=== PATIENT | male | born 1945 | race Caucasian/White ===

== ENCOUNTER 2018-07-03 15:14 | Emergency (ER) | payer MEDICARE, MEDICAID ==
--- NOTE | 2018-07-03 15:33 | Emergency Department Record ---
History of Present Illness - General Chief Complaint: Difficulty Breathing Stated Complaint: saloni Time Seen by Provider: 07/03/18 15:32 Source: Patient Mode of Arrival: Ambulatory Limitations: No limitations - History of Present Illness Initial Comments: The patient is here due to a mild cough and SOB for 4 days. The SOB did start about 2 years ago but has gotten worse recently. He has had some lower chest discomfort when he lies down and with deep breaths. He also has had worsening ALMAZAN for the last 4 days. The patient denies any leg pain, swelling, or any recent travel. The patient is a long time smoker and states he does have COPD but is on no medicines for it. The patient denies any chest pain, chest aching, sweating or nausea. MD Complaint: Shortness of breath Onset/Timin -: Year(s) Consistency: Intermittent, Getting worse Improves With: Rest Worsens With: Coughing, Exertion, Movement Known History Of: COPD Context: Occurred during exertion Associated Symptoms: Pain with inspiration - Related Data Home Oxygen Therapy: No Home Medications Medication Instructions Recorded Confirmed Last Taken Brimonidine/Dorzolamide/Pf 10 ml OP BID 07/03/18 07/03/18 07/03/18 [Brimonidine 0.15%-Dorzolam 2%] Latanoprost 0.005% Opth Yuliya 1 drop OP BID 07/03/18 07/03/18 07/03/18 [Xalatan] Previous Rx's Medication Instructions Recorded Albuterol Sulfate [Proair Hfa] 2 puff IH QID PRN #1 inhaler 07/03/18 Prednisone [Prednisone 20Mg] 40 mg PO DAILY #8 tab 07/03/18 Allergies Allergy/AdvReac Type Severity Reaction Status Date / Time No Known Drug Allergies Allergy Verified 07/03/18 15:21 Travel Screening - Travel/Exposure Within Last 30 Days Have you traveled within the last 30 days?: No - Travel/Exposure Within Last Year Have you traveled outside the [place] in the last year?: No - Additonal Travel Details Have you been exposed to anyone with a communicable illness?: No - Travel Symptoms Symptom Screening: None Review of Systems Constitutional: Denies: Chills, Fever Eyes: Denies: Eye discharge ENT: Denies: Congestion Respiratory: Reports: Cough, Dyspnea. Denies: Hemoptysis Cardiovascular: Reports: Chest pain. Denies: Arrhythmia Endocrine: Denies: Fatigue Gastrointestinal: Denies: Diarrhea, Vomiting Genitourinary: Denies: Dysuria Musculoskeletal: Denies: Arthralgia Skin: Denies: Bruising Past Medical History - SOCIAL HISTORY Smoking Status: Current every day smoker Alcohol Use: Occasional Drug Use: None - RESPIRATORY Hx Respiratory Disorders: Yes Hx COPD: Yes - CARDIOVASCULAR Hx Cardio Disorders: No - NEURO Hx Neuro Disorders: No - GI Hx GI Disorders: No - Hx Genitourinary Disorders: No - ENDOCRINE Hx Endocrine Disorders: No - MUSCULOSKELETAL Hx Musculoskeletal Disorders: No - PSYCH Hx Psych Problems: No - HEMATOLOGY/ONCOLOGY Hx Hematology/Oncology Disorders: No Family Medical History Any Significant Family History?: No Physical Exam - General General Appearance: Alert, Oriented x3, Cooperative, No acute distress - Head Head exam: Atraumatic, Normocephalic, Normal inspection - Eye Eye exam: Normal appearance, PERRL, EOMI - ENT Throat exam: Normal inspection. negative: Tonsillar erythema, Tonsillar exudate - Neck Neck exam: Normal inspection, Full ROM. negative: Tenderness - Respiratory Respiratory exam: Decreased breath sounds. negative: Normal lung sounds bilaterally, Accessory muscle use, Chest wall tenderness, Rales, Respiratory distress, Rhonchi, Stridor - Cardiovascular Cardiovascular Exam: Regular rate, Normal rhythm, Normal heart sounds - GI/Abdominal GI/Abdominal exam: Soft, Normal bowel sounds. negative: Tenderness - Extremities Extremities exam: Normal inspection, Full ROM, Normal capillary refill. negative: Tenderness - Back Back exam: Reports: Normal inspection - Neurological Neurological exam: Alert, Normal gait. negative: Abnormal gait, Motor sensory deficit Course Vital Signs 07/03/18 15:25 Temperature 97.6 F Pulse Rate 82 Respiratory 18 Rate Blood Pressure 138/71 Pulse Ox 97 - Reevaluation(s) Reevaluation #1: The patient is doing better at this time. He states his vague chest discomfort is improved after the Duoneb tx and is basically gone and the patient is resting comfortably. 07/03/18 16:26 Reevaluation #2: The patient is doing much better at this time. He is resting comfortably with no pain, discomfort, or pleuritic CP. His cardiac workup was neg and his age adjusted D-dimer was neg. I do believe the patient's issues are related to untreated COPD so we will get the patient on some appropriate medicines and have him F/U with a PCP. 07/03/18 16:47 Reevaluation #3: The patient is doing a lot better at this time. The steroids and inhallers completely resolved the patient's dyspnea and vague chest discomfort with deep breaths. He feels ready for home and has clear lungs and normal vital signs. 07/03/18 17:40 Medical Decision Making - Data Complexity MDM Data: Labs Ordered and/or Reviewed, X-Ray Ordered and/or Reviewed, EKG Ordered and/or Reviewed - Lab Data Result diagrams: 07/03/18 15:45 07/03/18 15:45 - EKG Data -: EKG Interpreted by Me EKG: No Acute Changes, Normal EKG - Radiology Data Radiology results: Report reviewed (CXR: Stable COPD.) Disposition Disposition: Discharge Clinical Impression: COPD exacerbation Disposition: Home, Self-Care Condition: (2) Stable Instructions: Dyspnea (ED) Additional Instructions: Please try to quit smoking and use the Inhaller and Prednisone as directed. Please see a family doctor later this week or next week for recheck. Return to the ER for any worsening symptoms. Please also see Dr. Coelho for Cardiology for further evaluation. Please return to the ER for any worsening symptoms, any chest pain, worse shortness of breath or fever. Prescriptions: Albuterol Sulfate [Proair Hfa] 2 puff IH QID PRN #1 inhaler PRN Reason: Cough And Difficulty Breathing Prednisone [Prednisone 20Mg] 40 mg PO DAILY #8 tab Forms: Patient Portal Access Time of Disposition: 17:38 Quality - Quality Measures Quality Measures: N/A - Blood Pressure Screening View Details: Yes Does Patient Have Any of the Following: No Blood Pressure Classification: Pre-Hypertensive BP Reading Systolic Measurement: 138 Diastolic Measurement: 71 Screening for High Blood Pressure: < Pre-Hypertensive BP, F/U Documented > [ G8950] Pre-Hypertensive Follow-up Interventions: Referral to alternative/primary care provider.
[2018-07-03] MEDS ORDERED: IPRATROPIUM/ALBUTEROL (0.5MG/3MG) NEB INH ONE (15:38)
[2018-07-03 15:58] LABS: EOS % 2.9 % (0-6); GRAN % 55.2 % (47-80); HEMATOCRIT 40.4 % (42.0-52.0); MEAN CELL VOLUME 89.2 fl (81-97); MEAN CORPUSCULAR HEMOGLOBIN 30.9 pg (27-33); MEAN CORPUSCULAR HGB CONC 34.7 g/dl (32-36); MEAN PLATELET VOLUME 8.9 fl (7.4-10.4); MONO % 14.9 % (0-9); PLATELET COUNT 281 K/uL (130-400); RED BLOOD COUNT 4.53 M/uL (4.40-5.70); RED CELL DISTRIBUTION WIDTH 12.9 % (11.5-14.5); WHITE BLOOD COUNT W/O DIFF 5.8 K/uL (4.2-12.2)
[2018-07-03 16:12] LABS: BLOOD UREA NITROGEN 10 mg/dL (8-23); CREATININE 0.9 mg/dL (0.7-1.2); EST GLOMERULAR FILTRATION RATE > 60 mL/min
[2018-07-03 16:13] LABS: TOTAL PROTEIN 7.6 g/dL (6.6-8.7)
[2018-07-03 16:15] LABS: GLUCOSE,RANDOM 103 mg/dL (74-109)
[2018-07-03 16:17] LABS: ALB/GLOB RATIO 1.2 (1.1-1.8); ALBUMIN 4.2 g/dL (4.0-5.0); ALT/SGPT 10 U/L (<41); AST/SGOT 15 U/L (10.0-50.0)
[2018-07-03 16:18] LABS: ALKALINE PHOSPHATASE 86 U/L (55-149)
[2018-07-03] MEDS ORDERED: METHYLPREDNISOLONE PF 125MG/VIAL IVP ONE (16:21)
[2018-07-03 16:22] LABS: CKMB 1.2 ng/mL (<6.73)
[2018-07-03] MEDS ORDERED: ALBUTEROL SULFATE (0.083%) 2.5 MG/3 ML NEB INH ONE (16:38)
--- NOTE | 2018-07-03 17:46 | Emergency Department Record ---
History of Present Illness - General Chief Complaint: Difficulty Breathing Stated Complaint: saloni Time Seen by Provider: 07/03/18 15:32 Source: Patient Mode of Arrival: Ambulatory Limitations: No limitations - History of Present Illness Onset/Timin -: Year(s) Consistency: Intermittent, Getting worse Improves With: Rest Worsens With: Coughing, Exertion, Movement Known History Of: COPD Context: Occurred during exertion Associated Symptoms: Pain with inspiration - Related Data Home Oxygen Therapy: No Home Medications Medication Instructions Recorded Confirmed Last Taken Brimonidine/Dorzolamide/Pf 10 ml OP BID 07/03/18 07/03/18 07/03/18 [Brimonidine 0.15%-Dorzolam 2%] Latanoprost 0.005% Opth Yuliya 1 drop OP BID 07/03/18 07/03/18 07/03/18 [Xalatan] Previous Rx's Medication Instructions Recorded Albuterol Sulfate [Proair Hfa] 2 puff IH QID PRN #1 inhaler 07/03/18 Prednisone [Prednisone 20Mg] 40 mg PO DAILY #8 tab 07/03/18 Allergies Allergy/AdvReac Type Severity Reaction Status Date / Time No Known Drug Allergies Allergy Verified 07/03/18 15:21 Travel Screening - Travel/Exposure Within Last 30 Days Have you traveled within the last 30 days?: No - Travel/Exposure Within Last Year Have you traveled outside the [place] in the last year?: No - Additonal Travel Details Have you been exposed to anyone with a communicable illness?: No - Travel Symptoms Symptom Screening: None Review of Systems Constitutional: Denies: Chills, Fever Eyes: Denies: Eye discharge ENT: Denies: Congestion Respiratory: Reports: Cough, Dyspnea. Denies: Hemoptysis Cardiovascular: Reports: Chest pain. Denies: Arrhythmia Endocrine: Denies: Fatigue Gastrointestinal: Denies: Diarrhea, Vomiting Genitourinary: Denies: Dysuria Musculoskeletal: Denies: Arthralgia Skin: Denies: Bruising Past Medical History - SOCIAL HISTORY Smoking Status: Current every day smoker Alcohol Use: Occasional Drug Use: None - RESPIRATORY Hx Respiratory Disorders: Yes Hx COPD: Yes - CARDIOVASCULAR Hx Cardio Disorders: No - NEURO Hx Neuro Disorders: No - GI Hx GI Disorders: No - Hx Genitourinary Disorders: No - ENDOCRINE Hx Endocrine Disorders: No - MUSCULOSKELETAL Hx Musculoskeletal Disorders: No - PSYCH Hx Psych Problems: No - HEMATOLOGY/ONCOLOGY Hx Hematology/Oncology Disorders: No Family Medical History Any Significant Family History?: No Physical Exam - General Limitations: No limitations Course Vital Signs 07/03/18 07/03/18 07/03/18 15:25 15:55 16:59 Temperature 97.6 F Pulse Rate 82 98 H 75 Respiratory 18 16 16 Rate Blood Pressure 138/71 Pulse Ox 97 100 98 Medical Decision Making - Lab Data Result diagrams: 07/03/18 15:45 07/03/18 15:45 Lab Results 07/03/18 07/03/18 07/03/18 Range/Units 15:45 15:45 15:45 WBC 5.8 (4.2-12.2) K/uL RBC 4.53 (4.40-5.70) M/uL Hgb 14.0 (14.0-18.0) gm/dl Hct 40.4 L (42.0-52.0) % MCV 89.2 (81-97) fl MCH 30.9 (27-33) pg MCHC 34.7 (32-36) g/dl RDW 12.9 (11.5-14.5) % Plt Count 281 (130-400) K/uL MPV 8.9 (7.4-10.4) fl Gran % 55.2 (47-80) % Lymphocytes % 26.0 (16-45) % Monocytes % 14.9 H (0-9) % Eosinophils % 2.9 (0-6) % Basophils % 1.0 (0-6) % D-Dimer (0-0.59) mg/L FEU Sodium 137 (136-145) mmol/L Potassium 3.9 (3.4-4.5) mmol/L Chloride 99 (98-107) mmol/L Carbon Dioxide 25.0 (22-29) mmol/L Anion Gap 13.0 (7-16) BUN 10 (8-23) mg/dL Creatinine 0.9 (0.7-1.2) mg/dL Estimated GFR > 60 mL/min Random Glucose 103 (74-109) mg/dL Calcium 8.9 (8.8-10.2) mg/dL Total Bilirubin 0.80 (0.2-1.0) mg/dL AST 15 (10.0-50.0) U/L ALT 10 (<41) U/L Alkaline Phosphatase 86 (55-149) U/L Creatine Kinase 70 (39-308) U/L CK-MB (CK-2) 1.2 (<6.73) ng/mL Troponin T < 0.010 (0-0.010) ng/mL NT-Pro-B Natriuret Pep 114.20 (<450) pg/mL Total Protein 7.6 (6.6-8.7) g/dL Albumin 4.2 (4.0-5.0) g/dL Globulin 3.4 (1.4-4.8) gm/dL Albumin/Globulin Ratio 1.2 (1.1-1.8) 07/03/18 Range/Units 15:45 WBC (4.2-12.2) K/uL RBC (4.40-5.70) M/uL Hgb (14.0-18.0) gm/dl Hct (42.0-52.0) % MCV (81-97) fl MCH (27-33) pg MCHC (32-36) g/dl RDW (11.5-14.5) % Plt Count (130-400) K/uL MPV (7.4-10.4) fl Gran % (47-80) % Lymphocytes % (16-45) % Monocytes % (0-9) % Eosinophils % (0-6) % Basophils % (0-6) % D-Dimer 0.60 H (0-0.59) mg/L FEU Sodium (136-145) mmol/L Potassium (3.4-4.5) mmol/L Chloride (98-107) mmol/L Carbon Dioxide (22-29) mmol/L Anion Gap (7-16) BUN (8-23) mg/dL Creatinine (0.7-1.2) mg/dL Estimated GFR mL/min Random Glucose (74-109) mg/dL Calcium (8.8-10.2) mg/dL Total Bilirubin (0.2-1.0) mg/dL AST (10.0-50.0) U/L ALT (<41) U/L Alkaline Phosphatase (55-149) U/L Creatine Kinase (39-308) U/L CK-MB (CK-2) (<6.73) ng/mL Troponin T (0-0.010) ng/mL NT-Pro-B Natriuret Pep (<450) pg/mL Total Protein (6.6-8.7) g/dL Albumin (4.0-5.0) g/dL Globulin (1.4-4.8) gm/dL Albumin/Globulin Ratio (1.1-1.8) Disposition Clinical Impression: COPD exacerbation Disposition: Home, Self-Care Condition: (2) Stable Instructions: Dyspnea (ED) Additional Instructions: Please try to quit smoking and use the Inhaller and Prednisone as directed. Please see a family doctor later this week or next week for recheck. Return to the ER for any worsening symptoms. Please also see Dr. Coelho for Cardiology for further evaluation. Please return to the ER for any worsening symptoms, any chest pain, worse shortness of breath or fever. Prescriptions: Albuterol Sulfate [Proair Hfa] 2 puff IH QID PRN #1 inhaler PRN Reason: Cough And Difficulty Breathing Prednisone [Prednisone 20Mg] 40 mg PO DAILY #8 tab Referrals: [facility] [Provider Group] Forms: Patient Portal Access Quality - Quality Measures Quality Measures: N/A - Blood Pressure Screening View Details: Yes Does Patient Have Any of the Following: No Blood Pressure Classification: Pre-Hypertensive BP Reading Systolic Measurement: 138 Diastolic Measurement: 71 Screening for High Blood Pressure: < Pre-Hypertensive BP, F/U Documented > [ G8950] Pre-Hypertensive Follow-up Interventions: Referral to alternative/primary care provider.
== END 2018-07-03 17:48 | disposition home or self-care (01) ==
LOC: ER 15:14
DX: J44.1 Chronic obstructive pulmonary disease with (acute) exacerbation (principal); R07.89 Other chest pain; R79.89 Other specified abnormal findings of blood chemistry; F17.210 Nicotine dependence, cigarettes, uncomplicated
CPT/HCPCS: 71046; 80053; 82550; 82553; 83880; 84484; 85025; 85379; 93005; 93010; 94640; 96374; 99284; J2930; J7613